=== PATIENT | male | born 1930 | race African-American/Black ===

== ENCOUNTER 2017-02-02 00:15 | Observation (INO) | payer MEDICARE, BC ==
[~2017-02-02] VITALS: Ht 180.3 cm; Wt 92.1 kg
[2017-02-02] VITALS (8 sets, daily range): BP systolic 117–174; BP diastolic 53–95
[~2017-02-02 00:15] MED LIST: AMLO10TA80 PO; OMEP40CA34 PO; TADA5TAB PO; TAMS-11 PO
[2017-02-02] MEDS ORDERED: SODIUM CHLORIDE 0.9% 1,000 ML IV ONE (01:46)
[2017-02-02] MEDS ORDERED: MORPHINE SULFATE 4 MG/ML CPJ (NOT FOR IM USE) IV ONE (02:00)
[2017-02-02] MEDS ORDERED: ONDANSETRON HCL 4MG/2ML VIAL IV ONE (02:00)
[2017-02-02 02:20] LABS: BASOPHILS % 1.4 % (0.0-2.0); HEMOGLOBIN. 12.8 g/dL (14.0-18.0); LYMPHOCYTES % 20.9 % (20.0-50.0); MEAN CORPUSCULAR HEMOGLOBIN 29.3 pg (28.0-32.0); MEAN CORPUSCULAR VOLUME 84.7 fL (80.0-94.0); MEAN PLATELET VOLUME 7.5 fl (7.4-10.4); MONOCYTES % 11.3 % (2.0-8.0); NEUTROPHILS % 65.4 % (40.0-76.0); PLATELET 242 x1000/uL (130-400); RED BLOOD CELL COUNT 4.37 mill/uL (4.7-6.1); RED CELL DISTRIBUTION WIDTH 13.5 % (11.6-14.6)
[2017-02-02 02:24] LABS: INR 1.4; PROTHROMBIN TIME 14.2 sec (9.4-11.6)
[2017-02-02 03:52] LABS: CLARITY URINE CLOUDY (CLEAR); GLUCOSE URINE NEGATIVE (NEGATIVE); KETONES URINE NEGATIVE (NEGATIVE); LEUKOCYTE ESTERASE URINE TRACE (NEGATIVE); NITRITE URINE NEGATIVE (NEGATIVE); PROTEIN URINE 4+ (NEGATIVE); SPECIFIC GRAVITY URINE 1.027 (1.005-1.030)
[2017-02-02 03:56] LABS: COLOR URINE RED (YELLOW); OCCULT BLOOD URINE 4+ (NEGATIVE)
[2017-02-02] MEDS ORDERED: DOCUSATE SODIUM 100MG CAPSULE PO PRN (09:30)
[2017-02-02] MEDS ORDERED: ACETAMINOPHEN 325MG TABLET PO PRN (09:30)
[2017-02-02] MEDS: SODIUM CHLORIDE 0.9% 1,000 ML IV SCH (10:19)
[2017-02-02] MEDS: AMLODIPINE 10MG TABLET PO SCH (11:03)
[2017-02-02] MEDS: TAMSULOSIN HCL 0.4MG SR CAPSULE PO SCH (11:03)
[2017-02-02] MEDS: CEFTRIAXONE 1 G PREMIX 50 ML IV SCH (11:09)
[2017-02-02] MEDS: ENOXAPARIN 80MG/0.8ML SYR SUBCUT SCH (11:49)
[2017-02-02 15:42] LABS: HEMATOCRIT 34.6 % (42.0-52.0); HEMOGLOBIN 11.9 g/dL (14.0-18.0)
[2017-02-02] MEDS ORDERED: ALPRAZOLAM 0.25 MG TABLET PO PRN (18:45)
[2017-02-02] MEDS: FAMOTIDINE 20MG TABLET PO SCH (20:07)
[2017-02-02] MEDS: HYDROMORPHONE HCL/PF 2MG/ML CPJ IV PRN (21:18)
[2017-02-03] VITALS (12 sets, daily range): BP systolic 127–183; BP diastolic 43–104
[2017-02-03] MEDS: SODIUM CHLORIDE 0.9% 1,000 ML IV SCH ×2 (02:50→12:01)
[2017-02-03] MEDS: HYDROMORPHONE HCL/PF 2MG/ML CPJ IV PRN (04:04)
[2017-02-03 06:51] LABS: BASOPHILS % 0.4 % (0.0-2.0); EOSINOPHILS % 0.4 % (0.0-5.0); HEMATOCRIT. 30.7 % (42.0-52.0); HEMOGLOBIN. 10.5 g/dL (14.0-18.0); LYMPHOCYTES % 9.4 % (20.0-50.0); MEAN CORPUSCULAR HEMOGLOBIN 28.7 pg (28.0-32.0); MEAN CORPUSCULAR VOLUME 83.9 fL (80.0-94.0); MEAN PLATELET VOLUME 7.7 fl (7.4-10.4); MONOCYTES % 11.2 % (2.0-8.0); NEUTROPHILS % 78.6 % (40.0-76.0); PLATELET 206 x1000/uL (130-400); RED BLOOD CELL COUNT 3.65 mill/uL (4.7-6.1); RED CELL DISTRIBUTION WIDTH 13.3 % (11.6-14.6)
[2017-02-03 07:25] LABS: INR 1.1; PROTHROMBIN TIME 11.6 sec (9.4-11.6)
[2017-02-03] MEDS: TAMSULOSIN HCL 0.4MG SR CAPSULE PO SCH (08:32)
[2017-02-03] MEDS: AMLODIPINE 10MG TABLET PO SCH (08:33)
[2017-02-03] MEDS: ENOXAPARIN 80MG/0.8ML SYR SUBCUT SCH (08:33)
[2017-02-03] MEDS ORDERED: SODIUM BICARBONATE 4% (2.4MEQ) 5ML VIAL IV ONE (10:04)
[2017-02-03] MEDS ORDERED: LIDOCAINE HCL 1% 20ML VIAL (Pyxis) INJ ONE (10:04)
[2017-02-03] MEDS ORDERED: IOHEXOL-300 100 ML BOTTLE ONE ×2 (10:04→11:08)
[2017-02-03] MEDS ORDERED: PROPOFOL 200MG/20ML VIAL IV ONE (10:48)
[2017-02-03] MEDS ORDERED: MIDAZOLAM HCL 2 MG/2 ML VIAL ONE (10:49)
[2017-02-03] MEDS ORDERED: FENTANYL CITRATE/PF 50MCG/ML 5ML VIAL ONE (10:49)
[2017-02-03] MEDS: CEFTRIAXONE 1 G PREMIX 50 ML IV SCH (11:00)
[2017-02-03] MEDS ORDERED: IOPAMIDOL 20 ML VIAL IT ONE (11:08)
[2017-02-03] MEDS ORDERED: ESMOLOL HCL 10MG/ML 10ML VIAL IV ONE (12:01)
[2017-02-03] MEDS ORDERED: LABETALOL HCL 5MG/ML VIAL 20ML IV ONE (12:53)
[2017-02-03] MEDS ORDERED: FENTANYL CITRATE/PF 50MCG/ML 2ML VIAL IV PRN (13:00)
[2017-02-03] MEDS ORDERED: ONDANSETRON HCL 4MG/2ML VIAL IV PRN (13:00)
[2017-02-03] MEDS ORDERED: HYDROMORPHONE HCL/PF 2MG/ML CPJ IV PRN (13:00)
[2017-02-03 15:27] LABS: HEMATOCRIT 34.2 % (42.0-52.0); HEMOGLOBIN 11.7 g/dL (14.0-18.0)
[2017-02-03] MEDS: FAMOTIDINE 20MG TABLET PO SCH (22:02)
[2017-02-03 23:45] LABS: HEMATOCRIT 32.7 % (42.0-52.0); HEMOGLOBIN 11.2 g/dL (14.0-18.0)
[2017-02-04] VITALS: BP 109/55
[2017-02-04 04:00] VITALS: BP 136/71
[2017-02-04] MEDS: SODIUM CHLORIDE 0.9% 1,000 ML IV SCH (04:02)
[2017-02-04 06:38] LABS: BASOPHILS % 0.5 % (0.0-2.0); EOSINOPHILS % 0.5 % (0.0-5.0); HEMATOCRIT. 28.7 % (42.0-52.0); HEMOGLOBIN. 9.9 g/dL (14.0-18.0); LYMPHOCYTES % 8.9 % (20.0-50.0); MEAN PLATELET VOLUME 7.7 fl (7.4-10.4); MONOCYTES % 10.6 % (2.0-8.0); NEUTROPHILS % 79.5 % (40.0-76.0); PLATELET 224 x1000/uL (130-400); RED BLOOD CELL COUNT 3.41 mill/uL (4.7-6.1); RED CELL DISTRIBUTION WIDTH 13.4 % (11.6-14.6)
[2017-02-04 08:00] VITALS: BP 140/73
[2017-02-04] MEDS: AMLODIPINE 10MG TABLET PO SCH (08:13)
[2017-02-04] MEDS: TAMSULOSIN HCL 0.4MG SR CAPSULE PO SCH (08:13)
[2017-02-04] MEDS: CEFTRIAXONE 1 G PREMIX 50 ML IV SCH (11:13)
[2017-02-04 12:00] VITALS: BP 126/73
[2017-02-04 14:00] VITALS: BP 142/74
[2017-02-04 16:13] VITALS: BP 143/71
== END 2017-02-04 17:17 | disposition still patient (30) ==
LOC: ER 00:16 → 5EST 06:09 → INTOOBSV 06:09 → EDBEDREQ 06:14 → ENRESERV 07:15
PROVIDERS: ADMIT Ophthalmology; ATTEND Ophthalmology
DX: R31.0 Gross hematuria (principal); C67.9 Malignant neoplasm of bladder, unspecified; N39.0 Urinary tract infection, site not specified; N13.30 Unspecified hydronephrosis; I82.432 Acute embolism and thrombosis of left popliteal vein; Z87.891 Personal history of nicotine dependence; Z79.01 Long term (current) use of anticoagulants; Z90.89 Acquired absence of other organs; D50.0 Iron deficiency anemia secondary to blood loss (chronic); I12.9 Hypertensive chronic kidney disease with stage 1 through stage 4 chronic kidney disease, or unspecified chronic kidney disease; N18.9 Chronic kidney disease, unspecified; N40.1 Benign prostatic hyperplasia with lower urinary tract symptoms
CPT/HCPCS: 36415; 37191; 52001; 52240; 74176; 76770; 80048; 81001; 85014; 85018; 85025; 85610; 86850; 86900; 86901; 87040; 87086; 88304; 88305; 93005; 93970; 96361; 96365; 96372; 96375; 96376; 99291; C1769; C1880; G0378; J0696; J1170; J1644; J1650; J2270; J2405; J3010; J3490; J7030; Q9966; Q9967; 96374; J2250; J2704; A4315

== ENCOUNTER → 2017-03-15 | Outpatient (CLI) | payer MEDICARE, BC ==
[2017-03-15] VITALS (15 sets, daily range): BP systolic 143–164; BP diastolic 56–90
[~2017-03-15] MED LIST changes: +CEFAZOLIN 1000MG PREMIX 50 ML IV ONE; +CEFAZOLIN 1000MG PREMIX 50 ML IV SCH; +FENTANYL CITRATE/PF 50MCG/ML 2ML VIAL IV ONE; +FENTANYL CITRATE/PF 50MCG/ML 2ML VIAL ONE; +IOHEXOL-300 50 ML BOTTLE IV ONE; +LIDOCAINE HCL 1% 20ML VIAL (Pyxis) INJ ONE; +MIDAZOLAM HCL 2 MG/2 ML VIAL IV ONE; +MIDAZOLAM HCL 2 MG/2 ML VIAL ONE; +MIDAZOLAM HCL 5 MG/5 ML VIAL IV ONE; +SODIUM BICARBONATE 4% (2.4MEQ) 5ML VIAL IV ONE
== END | disposition home or self-care (01) ==
LOC: RAD 03-13 08:09
PROVIDERS: ATTEND Internal Medicine Hematology & Oncology
DX: N13.8 Other obstructive and reflux uropathy (principal)
CPT/HCPCS: 50432; 99152; 99153; C1725; C1766; C1769; J0690; J2250; J3010; J3490; Q9967

== ENCOUNTER → 2017-03-30 | Day surgery (SDC) | payer MEDICARE, BC ==
[2017-03-30] VITALS (9 sets, daily range): BP systolic 161–172; BP diastolic 84–96
[~2017-03-30] VITALS: Ht 180.3 cm; Wt 85.3 kg
[~2017-03-30] MED LIST changes: -CEFAZOLIN 1000MG PREMIX 50 ML IV SCH; +HYDROCODONE/ACETAMINOPHEN 5/325MG TABLET PO PRN; -MIDAZOLAM HCL 2 MG/2 ML VIAL IV ONE; -MIDAZOLAM HCL 2 MG/2 ML VIAL ONE; -MIDAZOLAM HCL 5 MG/5 ML VIAL IV ONE
== END | disposition home or self-care (01) ==
LOC: RAD 08:27
PROVIDERS: ATTEND Urology
DX: N13.8 Other obstructive and reflux uropathy (principal); Z85.51 Personal history of malignant neoplasm of bladder
CPT/HCPCS: 50693; 99152; 99153; C1725; C1729; C1769; C2625; J0690; J3010; J3490; J7050; Q9967

== ENCOUNTER → 2017-04-02 | Day surgery (SDC) | payer MEDICARE, BC ==
[~2017-04-02] MED LIST changes: -CEFAZOLIN 1000MG PREMIX 50 ML IV ONE; -FENTANYL CITRATE/PF 50MCG/ML 2ML VIAL IV ONE; -FENTANYL CITRATE/PF 50MCG/ML 2ML VIAL ONE; -HYDROCODONE/ACETAMINOPHEN 5/325MG TABLET PO PRN
== END | disposition home or self-care (01) ==
LOC: RAD 08:47
PROVIDERS: ATTEND Urology
DX: C67.9 Malignant neoplasm of bladder, unspecified (principal)
CPT/HCPCS: 74425; Q9967; J3490